=== PATIENT | male | born 1950 | race Caucasian/White ===

== ENCOUNTER 2017-05-03 17:00 | Inpatient (IN) | payer OTHER, MEDICARE ==
--- NOTE | 2017-05-03 17:11 | CPEKG ---
Heart Rate: 80 RR Interval: 750 P-R Interval: 188 QRSD Interval: 82 QT Interval: 360 QTC Interval: 416 P [place]: 59 QRS [place]: -7 T Wave [place]: 49 EKG Severity - OTHERWISE NORMAL ECG - EKG Impression: SINUS RHYTHM EKG Impression: ABERRANT COMPLEX, POSSIBLY SUPRAVENTRICULAR Electronically Signed By: Anam Reeves 03-May-2017 19:52:18
[2017-05-03] MEDS ORDERED: NITROGLYCERIN 0.4 MG BTL SL PRN (17:18)
[2017-05-03 17:24] LABS: PLATELET COUNT 279 10^3/uL (150-400)
--- NOTE | 2017-05-03 17:30 | CPEKG ---
Heart Rate: 68 RR Interval: 882 P-R Interval: 192 QRSD Interval: 80 QT Interval: 380 QTC Interval: 405 P [place]: 61 QRS [place]: -14 T Wave [place]: 41 EKG Severity - ABNORMAL ECG - EKG Impression: SINUS RHYTHM EKG Impression: PROBABLE INFERIOR INFARCT, OLD Electronically Signed By: Anam Reeves 03-May-2017 19:52:18
[2017-05-03] MEDS ORDERED: ASPIRIN 81 MG CHEWABLE TAB PO ONE (17:32)
--- NOTE | 2017-05-03 17:32 | EDPHY ---
H & P Stated Complaint: chest pain Time Seen by Provider: 05/03/17 17:03 HPI/ROS: CHIEF COMPLAINT: Chest pain HISTORY OF PRESENT ILLNESS: The patient presents to the ED with a 2 day history of intermittent chest pain. He 1st experienced chest pain yesterday in the afternoon after eating lunch. He reports his symptoms lasted somewhat intensely for approximately an hour and half however he never quite felt back to normal. He went to bed and woke up this morning feeling back at his usual state of health. Again after lunch the patient developed some substernal chest discomfort which persisted. The patient continues to complain of 3/10 pain. It does not radiate to his neck back or jaw. The patient has no history of coronary artery disease. He does have a history of hypertension and hyperlipidemia. The patient denies any asymmetric calf pain or swelling. The patient denies recent fever cough or congestion. The patient denies any abdominal pain, nausea, vomiting or diarrhea. REVIEW OF SYSTEMS: A comprehensive 10 point review of systems is otherwise negative aside from elements mentioned in the history of present illness. Source: Patient Exam Limitations: No limitations - Personal History Current Tetanus/Diphtheria Vaccine: Unsure - Medical/Surgical History Hx Asthma: Yes Hx Chronic Respiratory Disease: No Hx Diabetes: No Hx Cardiac Disease: No Hx Renal Disease: No Hx Cirrhosis: No Hx Alcoholism: No Hx HIV/AIDS: No Hx Splenectomy or Spleen Trauma: No Other PMH: hypertension, asthma; - Social History Smoking Status: Never smoked - Physical Exam Exam: General Appearance: Alert, no distress Eyes: Pupils equal and round no pallor or injection ENT, Mouth: Mucous membranes moist Respiratory: There are no retractions, lungs are clear to auscultation Cardiovascular: Regular rate and rhythm Gastrointestinal: Abdomen is soft and nontender, no masses, bowel sounds normal Neurological: A&O, normal motor function, normal sensory exam, normal cranial nerves Skin: Warm and dry, no rashes Musculoskeletal: Neck is supple nontender Extremities: symmetrical, full range of motion Constitutional: Initial Vital Signs Temperature (C) 37 C 05/03/17 17:08 Heart Rate 80 05/03/17 17:08 Respiratory Rate 16 05/03/17 17:08 Blood Pressure 163/96 H 05/03/17 17:08 O2 Sat (%) 97 05/03/17 17:08 O2 Delivery Mode Nasal Cannula O2 (L/minute) 2 Allergies/Adverse Reactions: Penicillins Allergy (Verified 05/03/17 18:49) ENVIORNMENTAL Allergy (Intermediate, Uncoded 05/03/17 17:12) ASTHMA Home Medications: Medication Instructions Recorded Aspirin EC [Aspirin EC 81 mg (*)] 81 mg PO HS 05/03/17 Fluticasone/Salmeter 100/50Mcg 1 puffs IH DAILY 05/03/17 [Advair 100/50 (*)] Herbals/Supplements -Info Only 1 ea PO DAILY 05/03/17 Lisinopril [Zestril 2.5 mg (*)] 2.5 mg PO DAILY 05/03/17 Medical Decision Making - Diagnostics EKG Interpretation: EKG: Complete interpretation has been separately recorded in the [facility] archive. Summary impression: Inferior Q-waves, no ST segment elevation Imaging Results: Imaging Impressions Chest X-Ray 05/03/17 17:18 Impression: No acute intrathoracic pathology. ED Course/Re-evaluation: The patient presents to the ED with complaints of 3/10 substernal chest discomfort. His initial EKG demonstrates no evidence of a STEMI. The patient received aspirin, nitroglycerin and morphine. Given the patient's history of chest pressure and ongoing discomfort an echocardiogram was obtained. The patient was evaluated emergently by Dr. Evaristo Lo in the setting of his chest discomfort. The patient was noted to have a wall motion abnormality involving his apex. The patient did receive IV morphine and nitroglycerin with complete resolution of his pain. The patient's initial troponin came back elevated at 0.127 The patient received an aspirin in the emergency department. Consultation was made with Dr. Amado Samson from the interventional cardiology service who evaluated the patient in the emergency department. He will be taken to the cardiac catheterization lab for further evaluation of his wall motion abnormality. The patient will be admitted to the cardiology service in the intensive care unit this evening. Differential Diagnosis: Differential diagnosis considered includes ST segment elevation myocardial infarction, acute coronary syndrome, pericarditis, esophageal spasm, pulmonary embolism Critical Care Time: Critical care time exclusive of procedures and exclusive of the PA's time was 32 minutes, performed by myself, Anam Reeves MD. The patient presents to the ED for evaluation of acute chest pain. He was noted to have wall motion abnormality on his EKG and elevated troponin. The patient was evaluated emergently by Cardiology will be taken to the cardiac catheterization lab for further evaluation and risk stratification. - Data Points Laboratory Results: Laboratory Results 05/03/17 17:00 05/03/17 17:00 05/03/17 05/03/17 05/03/17 17:00 17:00 17:00 WBC RBC Hgb Hct MCV MCH MCHC RDW Plt Count MPV Neut % (Auto) Lymph % (Auto) Pershing % (Auto) Eos % (Auto) Baso % (Auto) Nucleat RBC Rel Count Absolute Neuts (auto) Absolute Lymphs (auto) Absolute Monos (auto) Absolute Eos (auto) Absolute Basos (auto) Absolute Nucleated RBC Immature Gran % Immature Gran # D-Dimer < 0.27 ug/mLFEU ug/mLFEU (0.00-0.50) Sodium 142 mEq/L mEq/L (135-145) Potassium 4.4 mEq/L mEq/L (3.5-5.2) Chloride 102 mEq/L mEq/L (97-110) Carbon Dioxide 28 mEq/l mEq/l (22-31) Anion Gap 12 mEq/L mEq/L (8-16) BUN 23 mg/dL mg/dL (7-23) Creatinine 1.1 mg/dL mg/dL (0.7-1.3) Estimated GFR > 60 Glucose 79 mg/dL mg/dL (70-100) Calcium 9.3 mg/dL mg/dL (8.5-10.4) Total Bilirubin 0.5 mg/dL mg/dL (0.1-1.4) Conjugated Bilirubin 0.3 mg/dL mg/dL (0.0-0.5) Unconjugated Bilirubin 0.2 mg/dL mg/dL (0.0-1.1) AST 52 IU/L IU/L (17-59) ALT 40 IU/L IU/L (21-72) Alkaline Phosphatase 73 IU/L IU/L (38-126) Troponin I 0.127 ng/mL H ng/mL (0.000-0.034) Total Protein 7.9 g/dL g/dL (6.3-8.2) Albumin 4.6 g/dL g/dL (3.5-5.0) Lipase 195 IU/L IU/L (23-300) 05/03/17 17:00 WBC 7.81 10^3/uL 10^3/uL (3.80-9.50) RBC 4.96 10^6/uL 10^6/uL (4.40-6.38) Hgb 15.7 g/dL g/dL (13.7-17.5) Hct 45.8 % % (40.0-51.0) MCV 92.3 fL fL (81.5-99.8) MCH 31.7 pg pg (27.9-34.1) MCHC 34.3 g/dL g/dL (32.4-36.7) RDW 14.2 % % (11.5-15.2) Plt Count 279 10^3/uL 10^3/uL (150-400) MPV 9.3 fL fL (8.7-11.7) Neut % (Auto) 70.4 % % (39.3-74.2) Lymph % (Auto) 17.2 % % (15.0-45.0) Pershing % (Auto) 9.0 % % (4.5-13.0) Eos % (Auto) 1.5 % % (0.6-7.6) Baso % (Auto) 1.4 % % (0.3-1.7) Nucleat RBC Rel Count 0.0 % % (0.0-0.2) Absolute Neuts (auto) 5.50 10^3/uL 10^3/uL (1.70-6.50) Absolute Lymphs (auto) 1.34 10^3/uL 10^3/uL (1.00-3.00) Absolute Monos (auto) 0.70 10^3/uL 10^3/uL (0.30-0.80) Absolute Eos (auto) 0.12 10^3/uL 10^3/uL (0.03-0.40) Absolute Basos (auto) 0.11 10^3/uL H 10^3/uL (0.02-0.10) Absolute Nucleated RBC 0.00 10^3/uL 10^3/uL (0-0.01) Immature Gran % 0.5 % % (0.0-1.1) Immature Gran # 0.04 10^3/uL 10^3/uL (0.00-0.10) D-Dimer Sodium Potassium Chloride Carbon Dioxide Anion Gap BUN Creatinine Estimated GFR Glucose Calcium Total Bilirubin Conjugated Bilirubin Unconjugated Bilirubin AST ALT Alkaline Phosphatase Troponin I Total Protein Albumin Lipase Medications Given: Nitroglycerin (Nitrostat) 0.4 mg SL Q5M PRN PRN Reason: Chest Pain Last Admin: 05/03/17 17:35 Dose: 0.4 mg Discontinued Medications Aspirin (Aspirin) 324 mg PO EDNOW ONE Stop: 05/03/17 17:33 Last Admin: 05/03/17 17:45 Dose: 324 mg Lorazepam (Ativan Injection) 1 mg IVP EDNOW ONE Stop: 05/03/17 18:24 Last Admin: 05/03/17 18:29 Dose: 1 mg Morphine Sulfate (Morphine) 2 mg IVP EDNOW ONE Stop: 05/03/17 17:46 Last Admin: 05/03/17 17:35 Dose: 2 mg Departure - Departure Disposition: [facility] Inpatient Acute Clinical Impression: Non-ST elevated myocardial infarction Condition: Fair
[2017-05-03] MEDS ORDERED: LORazepam 2 MG/ML INJ IVP ONE (18:23)
[2017-05-03] MEDS ORDERED: fentaNYL 100 MCG/2 ML INJ ONE (19:04)
[2017-05-03] MEDS ORDERED: LIDOCAINE 1% 300 MG/30 ML SDV ONE (19:04)
[2017-05-03] MEDS ORDERED: IOPAMIDOL (ISOVUE-370) 150 ML BTL IV ONE (19:05)
[2017-05-03] MEDS ORDERED: MIDAZOLAM 2 MG/2 ML VIAL ONE (19:05)
--- NOTE | 2017-05-03 19:20 | PDHPUP ---
History & Physical Update H&P update statement: This history and physical update is based on an assessment of the patient which was completed after admission or registration (within 24 hours), but prior to the surgery/procedure. H&P update: H&P reviewed & patient examined, no change in patient's condition since H&P completed
--- NOTE | 2017-05-03 19:20 | PDPROPOC ---
Sedation Plan of Care Sedation Plan of Care: vital signs stable, mental status noted, patient educated of risks, benefits, alternatives, patient can tolerate sedation ASA Classification: ASA 2 Planned drugs: fentanyl, midazolam Mallampati Score: Class 2 Mallampati Reference Image: Patient passed 3-3-2 rule?: Yes
[2017-05-03] MEDS ORDERED: NITROGLYCERIN 1,500 MCG/15 ML VIAL MISC ONE (19:43)
[2017-05-03] MEDS ORDERED: BIVALIRUDIN 250 MG/5 ML VIAL IV ONE (19:43)
--- NOTE | 2017-05-03 19:43 | GCON ---
[f rep st] CONSULTATION CARDIOLOGY CONSULTATION DATE OF CONSULTATION: 05/03/2017 REFERRING PHYSICIAN: Anam Reeves MD INDICATION: Chest pain. HISTORY OF PRESENT ILLNESS: The patient is a pleasant 66-year-old gentleman with a known history of essential hypertension and remote history of asthma, who presented to [facility] emergency department this afternoon secondary to a 2-day history of intermittent chest discomfort. He initially described chest discomfort that occurred yesterday while eating lunch in the afternoon. He had no further episodes of chest discomfort yesterday. This morning, however, he had another episode of chest discomfort around lunchtime. These symptoms occurred primarily at rest. Later this afternoon, he was getting ready to go out with his and changing his clothes, when he developed new onset of substernal chest pressure that he described as 6/10, nonradiating, with no other associated symptoms, that gradually resolved with rest. He denied any shortness of breath, nausea, vomiting, or diaphoresis. His describes that he was "ashen" with the onset of chest discomfort. No associated diaphoresis. No dizziness, lightheadedness, near syncope or syncope. Currently, at the time of my exam, he is chest pain free. He has no known history of coronary artery disease. He has no known history of hyperlipidemia, diabetes. He has no smoking history. No family history of premature coronary artery disease. Prior to the last 2 days, he has had no complaints of chest pain. He informs me he did undergo a coronary calcium score approximately 10 years ago, which was 0. His hypertension is closely managed by Dr. Castro Abernathy, of [facility]. He is physically active and walks approximately 50 minutes daily without exertional symptoms. Preliminary report on echocardiogram done at bedside in the emergency department demonstrates evidence of mid and apical septal wall hypokinesis, as well as apical hypokinesis. ECG demonstrates sinus rhythm with Q-waves in leads III and aVF. No evidence of ST-segment changes or T-wave inversions consistent with ischemia. REVIEW OF SYSTEMS: A 10-point review of systems is otherwise negative. PAST MEDICAL HISTORY: 1. Hypertension. 2. Asthma. PAST SURGICAL HISTORY: None. MEDICATIONS ON ADMISSION: Lisinopril 20 mg daily, aspirin 81 mg daily, Advair p.r.n. ALLERGIES: To medications: Penicillin results in hives. SOCIAL HISTORY: He is . He lives with his . They are in the process of moving. They are moving from their home in [place] to [place]. He is a lifelong nonsmoker. He exercises regularly, walking approximately 50 minutes daily. He drinks approximately 1 glass of wine per night 5 nights a week. FAMILY HISTORY: No family history of premature coronary artery disease. PHYSICAL EXAMINATION: VITAL SIGNS: Blood pressure is 127/67, heart rate is 67 , respiratory rate of 16, oxygen saturation 98% on 2 L, temperature 37. GENERAL : He is awake, alert, oriented and appropriate, in no apparent distress. NECK : There is no evidence of JVP or carotid bruits. LUNGS: Clear to auscultation bilaterally. CARDIAC: S1, S2. Regular rate and rhythm. No murmurs, rubs, or gallops. ABDOMEN: Soft, nontender, nondistended. There is no pulsatile mass or abdominal bruit. EXTREMITIES: He has a 2+ right common femoral artery pulse. Distal pulses in the right foot are not appreciable. He states that this is not a new finding. He does have a 2+ left dorsalis pedis. LABORATORY DATA: White blood cell count 7.81, hemoglobin of 15.7, hematocrit of 45.8, platelets of 279. D-dimer less than 0.27. Sodium 142, potassium 4.4, chloride 102, bicarb 28, BUN 23, creatinine 1.1, glucose 79, AST 52, ALT 40, alkaline phosphatase 73. Troponin is elevated at 0.127. Albumin 4.6. Lipase 195. DIAGNOSTIC STUDIES: Chest x-ray demonstrates no acute cardiopulmonary process. Most recent ECG from 1725 demonstrates sinus rhythm at 68 beats per minute with Q-waves in leads III and aVF. Otherwise, unremarkable ECG. IMPRESSION: This is a pleasant 66-year-old gentleman with a 2-day history of intermittent substernal chest pressure occurring primarily with minimal activity. Most recent episode occurred this afternoon with changing his clothes to go out this evening. He described the pain as a 5/10 to 6/10 substernal chest pressure with no other associated symptoms. He has no prior history of heart disease. Echocardiogram demonstrates apical hypokinesis, as well as mid and apical septal wall hypokinesis. Troponin is elevated at 0.127. Workup consistent with [id number] elevation myocardial infarction. I have recommended to the patient that he undergo diagnostic left heart catheterization to be done urgently this evening. The risks and benefits of the procedure have been discussed with the patient in detail. He is agreeable to pursue. He has no contraindications to dual antiplatelet therapy. No known bleeding history. He has no pending surgeries. PLAN: 1. Left heart catheterization to be performed this evening. 2. Risks and benefits have been discussed in detail. 3. Further workup pending results of left heart catheterization. 30 min spent coordinating care. /[id number]/MODL MTDD
[2017-05-03] MEDS ORDERED: TICAGRELOR 90 MG TAB ONE (19:57)
--- NOTE | 2017-05-03 20:02 | ECHO ---
[email or web address] [address] [address] Main: [phone] Fax: Transthoracic Echocardiogram Name: CELI CABRERA MR#: [id number] Study Date: 05/03/2017 Study Time: 05:47 PM Date of : 1950 Age: 66 year(s) Height: 167.6 cm (66 in.) Weight: 68.04 kg (150 lb.) BSA: 1.77 m2 Gender: Male Examination: Echo Indication: Chest Pain Image Quality: Contrast: Requested by: Anam Reeves BP: 158 mmHg/94 mmHg Heart Rate: Rhythm: Normal sinus rhythm Indication: Chest Pain Procedure Staff Roller Coaster Operator: Lyle Eduardo RDCS Reading Physician: Jorge Lo MD Requesting Provider: Conclusions: Mildly reduced systolic LV function. The ejection fraction is visually estimated to be 50 %. There is mid inferoseptal to apical septal hypokinesis. There is apical hypokinesis. . Measurements: Chambers Valvular Assessment AV/MV Valvular Assessment TV/PV Normal Normal Normal Name Value Range Name Value Range Name Value Range Ao Ashley (MM): 2.6 cm (2.2 cm-3.7 AV Vmax: 1.41 m/s (1 m/s-1.7 PV Vmax: 1.11 m/s (0.6 m/s-0.9 cm) m/s) m/s) IVSd (2D): 1.0 cm (0.6 cm-1.1 AV maxP mmHg ( - ) PV PGmax: 5 mmHg ( - ) cm) LVOT Vmax: 0.86 m/s (0.7 m/s-1.1 LVDd (2D): 3.9 cm (4.2 cm-5.9 m/s) cm) MV E Vmax: 0.48 m/s ( - ) LVPWd (2D): 1.0 cm (0.6 cm-1 MV A Vmax: 0.58 m/s ( - ) cm) MV E/A: 0.83 ( - ) LVEF (MOD4): 54 % (>=55 %) Visual EF: 50 % Continued Measurements: Findings: Left Ventricle: Normal size left ventricle. Mildly reduced systolic LV function. The ejection fraction is visually estimated to be 50 %. Grade 1 diastolic dysfunction (abnormal relaxation). There is mid inferoseptal to apical septal hypokinesis. There is apical hypokinesis. . Right Ventricle: Normal size right ventricle. Normal RV function. Left Atrium: Patient: CELI CABRERA Study Date: 05/03/2017 Page 1 of 2 05:47 PM The left atrium is normal in size. Right Atrium: The right atrium is normal in size. Mitral Valve: The mitral valve is normal in appearance and function. There is no mitral valve regurgitation. No mitral stenosis is present. Aortic Valve: The aortic valve is normal in appearance. There is no aortic valve regurgitation. Tricuspid Valve: The tricuspid valve is normal in appearance and function. Pulmonic Valve: The pulmonic valve is normal in appearance and function. Aorta: The aorta is normal. Exam Comments: There is no obvious dissection. Consider Takotsubo Cardiomyopathy.. (No Signature Object) Patient: CELI CABRERA Study Date: 05/03/2017 Page 2 of 2 05:47 PM [id number]
[2017-05-03] MEDS ORDERED: ATROPINE SULFATE 1 MG/10 ML SYR IVP PRN (20:20)
[2017-05-03] MEDS ORDERED: ASPIRIN EC 325 MG TAB PO ONE (20:20)
[2017-05-03] MEDS ORDERED: TICAGRELOR 90 MG TAB PO ONE (20:20)
[2017-05-03] MEDS ORDERED: TEMAZEPAM 15 MG CAP PO PRN (20:20)
[2017-05-03] MEDS ORDERED: ONDANSETRON 4 MG/2 ML VIAL IVP PRN (20:20)
[2017-05-03] MEDS ORDERED: LORazepam 2 MG/ML INJ IVP PRN (20:20)
--- NOTE | 2017-05-03 20:34 | CPIP ---
[f rep st] INVASIVE CARDIAC PROCEDURE DATE OF PROCEDURE: 05/03/2017 PROCEDURE: 1. Coronary angiography. 2. Left ventriculography. 3. Stenting of left anterior descending coronary artery with Synergy drug-eluting stent. INDICATION: Acute coronary syndrome with elevated troponin and segmental wall motion abnormalities o n echocardiogram. ACCESS: Patient was prepped and draped in the sterile fashion. 1% lidocaine was used to anesthetize the right inguinal region. A 6-Mongolian introducer sheath was placed selectively into the right commo n femoral artery via modified Seldinger technique. CORONARY ANGIOGRAPHY: A 6-Mongolian JL4 was advanced to the left main coronary artery and images obtain ed. The left main coronary artery bifurcated into an LAD and circumflex coronary arteries. The left main coronary artery appeared normal. The left anterior descending coronary artery had a single dis crete 99% stenosis in the mid vessel. The circumflex coronary artery is a relatively small vessel. The circumflex coronary artery had mild diffuse disease throughout. There was no stenosis greater th an 20%. A 6-Mongolian JR4 was advanced to the right coronary artery and images obtained. The right cor onary artery was torturous. The right coronary artery had mild luminal irregularities in the mid ves [place]. There was no stenosis greater than 10%. LEFT VENTRICULOGRAPHY: A 6-Mongolian pigtail catheter was advanced in the left ventricle and images obt ained. The left ventricle was normal in size with reduced systolic function. Estimated ejection fra ction was 45%. The apex appeared to be hypokinetic. Percutaneous coronary intervention of the left anterior descending coronary artery. A 6-Mongolian EBU 3.5 catheter was advanced to the left main coron mack artery and images obtained. Angiography demonstrated 99% stenosis in the mid left anterior desce nding coronary artery. A Luge wire was placed in the distal vessel and position verified by angiogra phy. A 2.5 x 15 Emerge balloon was used to pre-dilate the lesion. Followup angiography demonstrated significant residual stenosis with FRANCISCO-3 flow. A 2.5 x 24 Synergy drug-eluting stent was then plac ed across the lesion and deployed. Followup angiography demonstrated FRANCISCO-3 flow. No residual steno sis. Appropriate step-down post stent. COMPLICATIONS: None. CONCLUSIONS: 1. Single vessel coronary artery disease. 2. Reduced left ventricular systolic function with an estimated ejection fraction of 45% and apical hypokinesis. 3. Status post successful percutaneous coronary intervention of the left anterior descending coronar y artery using Synergy drug-eluting stent. /[id number]/MODL
--- NOTE | 2017-05-03 21:23 | CPEKG ---
Heart Rate: 67 RR Interval: 896 P-R Interval: 200 QRSD Interval: 78 QT Interval: 392 QTC Interval: 414 P [place]: 66 QRS [place]: -4 T Wave [place]: 27 EKG Severity - NORMAL ECG - EKG Impression: SINUS RHYTHM Preliminary Awaiting MD Review
[2017-05-04 04:08] VITALS: TEMP 97.5
[2017-05-04 04:26] LABS: PLATELET COUNT 237 10^3/uL (150-400)
[2017-05-04 04:53] LABS: CREATINE KINASE 345 IU/L (0-224)
[2017-05-04 08:26] VITALS: O2SAT 98
[2017-05-04] MEDS: LISINOPRIL 2.5 MG TAB PO SCH ×2 (08:33→08:38)
[2017-05-04] MEDS: TICAGRELOR 90 MG TAB PO SCH ×2 (08:34→09:33)
--- NOTE | 2017-05-04 08:58 | CPEKG ---
Heart Rate: 67 RR Interval: 896 P-R Interval: 196 QRSD Interval: 84 QT Interval: 356 QTC Interval: 376 P [place]: 60 QRS [place]: 4 T Wave [place]: 64 EKG Severity - BORDERLINE ECG - EKG Impression: SINUS RHYTHM EKG Impression: BORDERLINE T WAVE ABNORMALITIES Preliminary Awaiting MD Review
[2017-05-04] MEDS ORDERED: ASPIRIN EC 81 MG TAB PO SCH (09:00)
[2017-05-04] MEDS ORDERED: FLUTICASONE/SALMETER 100/50MCG DISKUS IH SCH (09:00)
[2017-05-04] MEDS ORDERED: ATORVASTATIN CALCIUM 40 MG TAB PO SCH (09:00)
--- NOTE | 2017-05-04 09:50 | PDCARPN ---
Cardiology Progress Note Chief Complaint: Admitted last evening with exertionl chest pain Assessment/Plan: Assessment: 1. Acute Coronary Syndrome 2. CAD 3. PCI to Mid LAD on May 03, 2017 4. HTN Plan: -patient is stable for discharge today -home on the following medications: Aspirin 325 mg once daily Brilinta 90 mg p.o. B.i.d. Atorvastatin 80 mg daily Coreg 3.125 mg p.o. B.i.d. Lisinopril 2.5 mg daily -will arrange for cardiac rehab consultation -follow-up appointment MondayMay 12 at 10:00 a.m.with Jen Haile NP 05/04/17 09:45 Subjective: Mr. Woods is feeling well at 20. No cardiac complaints. Denies chest pain, chest pressure, shortness of breath or dyspnea. Hemodynamically stable. No events on telemetry. No right groin tenderness. Reviewed/Discussed With: family Time Spent With Patient: 30 minutes Objective: Vital Signs (8 Hrs) Temp Pulse Resp BP Pulse Ox 05/04/17 08:24 71 14 107/80 98 05/04/17 06:00 54 L 14 129/67 H 95 05/04/17 04:00 36.4 C 60 15 125/76 H 99 05/04/17 02:00 56 L 14 125/70 H 98 Intake/Output (24 Hrs) 05/03/17 05/04/17 05/05/17 05:59 05:59 05:59 Intake Total 850 Output Total 475 Balance 375 Intake: Oral (ml) 350 IV Intake (ml) 500 Output: Urine (ml) 475 Urinal 475 Other: Weight 72 kg Result Diagrams: 05/04/17 04:15 05/04/17 04:15 Cardiac Labs: Cardiac Lab Results (72 Hrs) 05/04/17 04:15 CK-MB (CK-2) Fraction 11.10 H Troponin I 1.740 H - Physical Exam Constitutional: WDWN Ears, Nose, Mouth, Throat: moist mucous membranes Cardiovascular: regular rate and rhythm, no murmurs, no rubs, no gallops Respiratory: clear to auscultate bilat Neurologic: AAOx3, CN II-XII grossly intact Psychiatric: cooperative, interactive ICD10 Worksheet Patient Problems: Problems Problem Status Onset Non-ST elevated myocardial infarction Acute chronic disease mgmt/transitional care Acute
[2017-05-04] MEDS ORDERED: CARVEDILOL 3.125 MG TAB PO ONE (10:30)
--- NOTE | 2017-05-04 10:35 | GDS ---
[f rep st] DISCHARGE SUMMARY INDICATIONS FOR ADMISSION: Acute coronary syndrome. MEDICAL HISTORY AT DISCHARGE: 1. New diagnosis of acute coronary syndrome, status post PCI with 2.5 x 24 mm Synergy drug-eluting stent to the mid-LAD. 2. Septal and apical hypokinesis with LVEF of 50% on echocardiogram. 3. Hypertension. 4. Asthma. HOSPITAL COURSE: The patient is a pleasant 66-year-old gentleman with no previous history of coronary artery disease who presented to the [facility] with new onset of intermittent episodes of substernal chest pain and pressure that resolved with rest. He presented after having an episode of 5 to 6/10 substernal chest pain with getting dressed , prompting him to seek medical attention at [facility]. His initial ECG was unremarkable for acute infarct or ischemia. Echocardiogram done bedside in the emergency department demonstrated mid and apical anterior septal wall hypokinesis. Initial troponin was mildly elevated at 0.127. The patient was brought urgently to the cardiac catheterization lab. Left heart catheterization demonstrated a 90%-95% mid LAD stenosis. He underwent successful percutaneous coronary intervention with a 2.5 x 24 mm Synergy drug- eluting stent. There were no postoperative complications. He tolerated the procedure well. He was transferred to the ICU for post acute coronary syndrome and PCI monitoring. Overnight, he remained stable. He had no further episodes of chest pain. He remained hemodynamically stable. He had no events on telemetry. On the morning of May 04, he was stable for discharge. PHYSICAL EXAM AT TIME OF DISCHARGE: VITAL SIGNS: Blood pressure 107/80, heart rate 71 sinus rhythm, oxygen saturation 98% on room air. GENERAL: He is awake, alert, oriented, appropriate, in no apparent distress. NECK: There is no evidence of JVP or carotid bruits. LUNGS: Clear to auscultation bilaterally. CARDIAC: S1, S2. Regular rate and rhythm. No murmurs, rubs, or gallops. EXTREMITIES: There is no evidence of cyanosis, clubbing or edema. LAB DATA: At time of discharge, white blood cell count 8.6, hemoglobin of 14.4 , hematocrit 42.1, platelets 237. Sodium 142, potassium 4.2, chloride 107, bicarb 24, BUN 20, creatinine 0.9, magnesium 1.9. AST 45, ALT 40. CK of 345, CK-MB of 11.10, troponin of 1.74 at time of discharge. Total cholesterol 176, LDL 105, HDL 59, triglycerides 62. MEDICATIONS AT DISCHARGE: 1. Aspirin 81 mg daily. 2. Brilinta 90 mg p.o. b.i.d. 3. Atorvastatin 40 mg daily. 4. Coreg 3.125 mg p.o. b.i.d. 5. Lisinopril 2.5 mg daily. 6. Advair 1 puff inhaled as needed. 7. Nitroglycerin 0.4 mg sublingual q.5 minutes p.r.n. pain. 8. Herbal supplements. PLAN AT DISCHARGE: 1. Patient will be discharged home. 2. The patient will be given prescriptions for new medications. 3. Patient is scheduled to follow up with [facility] on Friday, May 12, 2017 at 10:00 a.m. 4. Patient will be consulted by cardiac rehab. 5. Patient has been given post left heart catheterization and percutaneous coronary intervention instructions. 40 minutes spent coordinating care. /[id number]/MODL MTDD
[2017-05-04 11:33] VITALS: BP 119/79; PULSE 66; RESP 16
--- NOTE | 2017-05-04 11:33 | ASMTLACE ---
LACE Length of stay for Answers: 1 day current admission Acuity / Level of Answers: Yes Care: Did the patient have an inpatient admission? Comorbidities - select Answers: Other Notes: HTN, HLD, all that apply # of Emergency department Answers: 1-2 visits in the last 6 months Score: 6 Date Signed: 05/04/2017 11:32 AM Electronically Signed By:Karine Altamirano RN
[2017-05-04] MEDS ORDERED: CARVEDILOL 3.125 MG TAB PO SCH (18:00)
--- NOTE | 2017-05-05 07:28 | PDMN ---
Medical Necessity Medical necessity: IP for chest pain, troponin 0.127, with workup consistent with NSTEMI; emergent cath w/stenting of LAD for 90-95 % stenosis; IP per [facility] cpt [id number]; per order and cardiology consult 05/03/17
== END 2017-05-04 10:40 | disposition home or self-care (01) | DRG 247 ==
LOC: F2N 20:29
PROVIDERS: ADMIT Internal Medicine Cardiovascular Disease; ATTEND Internal Medicine Cardiovascular Disease
DX: I24.9 Acute ischemic heart disease, unspecified (principal); I10 Essential (primary) hypertension; E78.5 Hyperlipidemia, unspecified; J45.909 Unspecified asthma, uncomplicated
CPT/HCPCS: 96374; C1725; C1760; C1769; C1874; C1887; C9600; C9606; J0583; J1644; J2060; J2250; J2270; J3010; Q9967

== ENCOUNTER → 2017-07-31 | Outpatient (CLI) | payer OTHER, MEDICARE | LOC: BHFA 09:15 | PROVIDERS: ATTEND Internal Medicine Cardiovascular Disease | DX: I42.9 Cardiomyopathy, unspecified (principal); I25.10 Atherosclerotic heart disease of native coronary artery without angina pectoris ==